=== PATIENT | female | born 1950 | race Caucasian/White ===

== ENCOUNTER 2022-04-18 10:52 | Day surgery (SDC) | payer BC, MEDICARE ==
[~2022-04-18] VITALS: Ht 149.9 cm; Wt 62.7 kg
[2022-04-18] MEDS ORDERED: normal saline 1000ml 1,000 ML IV PRN (11:15)
[2022-04-18 11:20] VITALS: BP 123/59
[2022-04-18] MEDS ORDERED: PANT20TA18 PO (11:48)
[2022-04-18] MEDS ORDERED: FLUT1DIS4 INH (11:48)
[2022-04-18] MEDS ORDERED: METO50TA17 PO (11:48)
[2022-04-18] MEDS ORDERED: RALO60TA55 PO (11:48)
[2022-04-18] MEDS ORDERED: LISI20TA28 PO (11:48)
[2022-04-18] MEDS ORDERED: AMLO5TAB4 PO (11:48)
[2022-04-18 11:59] LABS: BASOPHILS # (AUTO) 0.1 X10'3 (0-0.2); BASOPHILS % (AUTO) 0.7 % (0-1); EOSINOPHILS # (AUTO) 0.1 X10'3 (0-0.9); EOSINOPHILS % (AUTO) 0.8 % (0-6); HEMATOCRIT 45.4 % (35.0-45.0); HEMOGLOBIN 15.7 g/dl (12.0-16.0); LYMPHOCYTES # (AUTO) 1.5 X10'3 (1.1-4.8); LYMPHOCYTES % (AUTO) 18.5 % (21-51); MEAN CORPUSCULAR HEMOGLOBIN 30.8 PG (27.0-31.0); MEAN CORPUSCULAR HGB CONC 34.5 g/dL (33.0-36.5); MEAN CORPUSCULAR VOLUME 89.3 FL (78-98); MEAN PLATELET VOLUME 9.2 FL (7.4-10.4); MONOCYTES # (AUTO) 0.4 X10'3 (0-0.9); MONOCYTES % (AUTO) 5.4 % (2-12); NEUTROPHILS # (AUTO) 6.1 X10'3 (1.8-7.7); NEUTROPHILS % (AUTO) 74.6 % (42-75); PLATELET COUNT 158 X10'3 (140-440); RED BLOOD COUNT 5.08 X10'6 (4.20-5.60); RED CELL DISTRIBUTION WIDTH 12.5 % (11.5-14.5); WHITE BLOOD COUNT 8.1 X10'3 (4.5-11.0)
[2022-04-18] MEDS ORDERED: LIDOcaine 1% 30ml preserv. free vial ONE (13:23)
[2022-04-18] MEDS ORDERED: heparin sodium, porcine/PF 100unit/ml 5ML syringe ONE (13:23)
[2022-04-18] MEDS ORDERED: midazolam 1 mg/ML 2ml injection ONE (13:23)
[2022-04-18] MEDS ORDERED: fentaNYL/PF 50MCG/1 ML 2ML syringe ONE (13:23)
[2022-04-18 14:25] VITALS: BP 128/84
[2022-04-18 14:40] VITALS: BP 120/69
[2022-04-18 14:55] VITALS: BP 125/65
[2022-04-18 15:10] VITALS: BP 121/64
== END 2022-04-18 15:30 | disposition home or self-care (01) ==
LOC: SSTAY O 10:52
PROVIDERS: ATTEND Radiology Vascular & Interventional Radiology
DX: C50.912 Malignant neoplasm of unspecified site of left female breast (principal); Z79.01 Long term (current) use of anticoagulants; Z79.899 Other long term (current) drug therapy; Z88.2 Allergy status to sulfonamides; Z88.0 Allergy status to penicillin; Z98.890 Other specified postprocedural states
CPT/HCPCS: 36415; 36561; 76937; 77001; 85025; 85610; 99152; 99153; C1788; C1894; J1642; J2250; J3010; J3490; J7030; A4620

== ENCOUNTER 2024-06-03 08:06 | Outpatient (CLI) | payer MEDICARE, OTHER ==
[~2024-06-03 08:06] MED LIST: AMLO5TAB4 PO; FLUT1DIS4 INH; LISI20TA28 PO; METO50TA17 PO; PANT20TA18 PO; RALO60TA55 PO
== END 2024-06-03 23:59 | disposition home or self-care (01) ==
LOC: RAD 08:06
PROVIDERS: ATTEND Physician Assistant Surgical
DX: M47.817 Spondylosis without myelopathy or radiculopathy, lumbosacral region (principal); M51.370 Other intervertebral disc degeneration, lumbosacral region with discogenic back pain only; M70.61 Trochanteric bursitis, right hip; M46.1 Sacroiliitis, not elsewhere classified; M48.07 Spinal stenosis, lumbosacral region
CPT/HCPCS: 72131